=== PATIENT | male | born 1950 | race Caucasian/White ===

== ENCOUNTER 2020-05-18 10:19 | Emergency (ER) | payer OTHER, SELFPAY ==
[~2020-05-18] VITALS: Ht 175.3 cm; Wt 79.4 kg
--- NOTE | 2020-05-18 10:35 | NUR ---
Patient triaged and left in ambulance. VSS and patient appears in no acute distress at this time. Accompanied by EMT , awaiting available bed, and MD notified of need for MSE.
[2020-05-18 10:36] VITALS: BP_SYST 125
--- NOTE | 2020-05-18 10:40 | NUR ---
ER Dr. Renteria at bedside examining patient.
[2020-05-18] MEDS ORDERED: ONDANSETRON 4 MG ODT TAB PO ONE (10:45)
--- NOTE | 2020-05-18 12:00 | NUR ---
Patient to ER fast track to gown for evaluation. Side rails up. Report given to Angella GOODE .
--- NOTE | 2020-05-18 12:10 | NUR ---
Patient presented to ER C/O generalized weakness. Patient BIB BLS to ER, afebrile, skin pink & warm, denies pain, nausea, denies v/d, respirations equal bilateral on 2 LPM NC. PT reports COVID + on 2 LPM NC at home.
--- NOTE | 2020-05-18 12:12 | NUR ---
ER Dr. Renteria at bedside examining patient.
[2020-05-18] MEDS ORDERED: ONDANSETRON HCL 4 MG/2 ML VIAL IVP ONE (12:15)
[2020-05-18 13:42] LABS: BASOPHILS # (AUTO) 0.1 K/uL (0.0-0.2); HEMOGLOBIN 13.8 g/dL (14.0-18.0); LYMPHOCYTES # (AUTO) 0.6 K/uL (1.0-5.5); MEAN CORPUSCULAR HEMOGLOBIN 31 pg (27-31); MEAN CORPUSCULAR HGB CONC 35 % (32-36); MEAN CORPUSCULAR VOLUME 90 fL (79.0-98.0); MONOCYTES # (AUTO) 0.3 K/uL (0.0-1.0); NEUTROPHILS # (AUTO) 6.2 K/uL (1.8-7.7); PLATELET COUNT (AUTO) 157 K/uL (130-430); RED BLOOD CELL COUNT(AUTO) 4.47 MIL/uL (4.2-6.2); RED CELL DISTRIBUTION WIDTH 12.5 % (9.0-15.0); WHITE BLOOD COUNT (AUTO) 7.2 K/uL (4.8-10.8)
[2020-05-18 13:44] LABS: CALCIUM 9.8 mg/dL (8.4-11.0); CREATININE 1.03 mg/dL (0.55-1.30)
[2020-05-18 13:47] LABS: POTASSIUM 4.1 mmol/L (3.5-5.1)
[2020-05-18 14:50] VITALS: BP_SYST 124
--- NOTE | 2020-05-18 14:50 | NUR ---
Patient given written and verbal discharge instructions and verbalizes understanding. ER MD discussed with patient the results and treatment provided. Patient in stable condition. ID arm band removed. Rx of zofran given. Patient educated on pain management and to follow up with PMD. Pain Scale 0/10. Opportunity for questions provided and answered. Medication side effect fact sheet provided.
== END 2020-05-18 14:50 | disposition home or self-care (01) ==
LOC: SED 10:19
DX: U07.1 COVID-19 (principal); R55 Syncope and collapse
CPT/HCPCS: 36415; 80048; 85025; 93005; 99283; J7030